=== PATIENT | female | born 1960 | race Caucasian/White ===

== ENCOUNTER 2018-03-31 10:22 | Observation (INO) | payer OTHER ==
[~2018-03-31] VITALS: Ht 167.6 cm; Wt 72.0 kg
[~2018-03-31 10:22] MED LIST: ASPI-611 PO; CEPH500C5 PO; CHOL200012 PO; MULT-85 PO; NITR0.4T48 SL; POTA99TA25 PO
[2018-03-31 10:50] LABS: BASOPHILS % (AUTO) 0.1 % (0-1); EOSINOPHILS # (AUTO) 0.2 X10'3 (0-0.9); EOSINOPHILS % (AUTO) 2.4 % (0-6); HEMOGLOBIN 15.7 g/dl (12.0-16.0); LYMPHOCYTES # (AUTO) 2.5 X10'3 (1.1-4.8); LYMPHOCYTES % (AUTO) 30.3 % (21-51); MEAN CORPUSCULAR HEMOGLOBIN 29.7 PG (27.0-31.0); MEAN CORPUSCULAR HGB CONC 34.1 % (33.0-36.5); MEAN CORPUSCULAR VOLUME 87.2 FL (78-98); MEAN PLATELET VOLUME 8.1 FL (7.4-10.4); MONOCYTES # (AUTO) 0.7 X10'3 (0-0.9); MONOCYTES % (AUTO) 8.4 % (2-12); NEUTROPHILS # (AUTO) 4.9 X10'3 (1.8-7.7); NEUTROPHILS % (AUTO) 58.8 % (42-75); PLATELET COUNT 277 X10'3 (140-440); RED BLOOD COUNT 5.28 X10'6 (4.20-5.60); RED CELL DISTRIBUTION WIDTH 14.1 % (11.5-14.5); WHITE BLOOD COUNT 8.3 X10'3 (4.5-11.0)
[2018-03-31] MEDS ORDERED: LORazepam 2 mg/ml vial IV ONE (10:50)
[2018-03-31] MEDS ORDERED: nitroGLYCERIN 0.4mg/hour patch TD ONE (10:50)
[2018-03-31] MEDS ORDERED: aspirin 81mg tab.chew PO ONE (10:50)
[2018-03-31 11:04] LABS: ALANINE AMINOTRANSFERASE 19 U/L (12-78); ALBUMIN 3.8 G/DL (3.4-5.0); ALBUMIN/GLOBULIN RATIO 1.1 (1.1-1.5); ALKALINE PHOSPHATASE 66 IU/L (46-116); ANION GAP 11 (8-16); ASPARTATE AMINO TRANSFERASE 20 U/L (10-37); BILIRUBIN,TOTAL 0.4 MG/DL (0.1-1.0); BLOOD UREA NITROGEN 8 MG/DL (7-18); BUN/CREATININE RATIO 10.4 (6.6-38.0); CALCIUM 9.3 MG/DL (8.5-10.1); CHLORIDE 103 MMOL/L (99-107); CREATININE 0.77 MG/DL (0.40-0.90); GLUCOSE 106 MG/DL (70-104); POTASSIUM 3.9 MMOL/L (3.5-5.1); SODIUM 140 MMOL/L (135-145); TOTAL CARBON DIOXIDE 26.4 MMOL/L (24-32); TOTAL PROTEIN 7.4 G/DL (6.4-8.2); eGFR 78 ML/MIN
[2018-03-31 11:09] LABS: PARTIAL THROMBOPLASTIN TIME 27 SECONDS (22-32); PROTHROMBIN TIME 10.7 SECONDS (9.0-12.0)
[2018-03-31] MEDS ORDERED: acetaminophen 325mg tablet PO ONE (11:10)
[2018-03-31] MEDS: morphine 4 MG/ML inj SYRINge IV PRN ×2 (11:35→12:39)
[2018-03-31] MEDS ORDERED: METO25TA6 PO (12:36)
[2018-03-31] MEDS ORDERED: mag hydrox/Alum hydrox/simeth 30ml oral suspension PO PRN (12:40)
[2018-03-31] MEDS ORDERED: nitroGLYCERIN 0.4mg SUBLingual tab SL PRN ×2 (12:40→16:30)
[2018-03-31] MEDS ORDERED: magnesium hydroxide 30ml (MOM) UD suspension PO PRN (12:40)
[2018-03-31] MEDS ORDERED: morphine 2 MG/ML inj. syringe IV PRN (12:40)
[2018-03-31] MEDS ORDERED: acetaminophen 325mg tablet PO PRN (12:40)
[2018-03-31] MEDS ORDERED: ASPI-1264 PO (12:58)
[2018-03-31] MEDS: morphine 2 MG/ML inj. syringe IV PRN ×2 (14:28→21:17)
[2018-03-31 14:49] LABS: CLARITY,URINE CLEAR (Clear); COLOR,URINE YELLOW (Yellow); GLUCOSE, URINE NEGATIVE (Neg); KETONES,URINE NEGATIVE (Neg); LEUKOCYTE ESTERASE ,URINE NEGATIVE (Neg); NITRITES, URINE NEGATIVE (Neg); OCCULT BLOOD,URINE MODERATE (Neg); PROTEIN,URINE NEGATIVE (Neg); UROBILINOGEN,URINE 0.2 E.U/dL (0.2-1.0)
[2018-03-31 14:50] LABS: UA COLLECTION TYPE CLN CATCH MIDSTREAM
[2018-03-31 15:00] VITALS: BP 102/52
[2018-03-31 15:06] LABS: MUCUS STRANDS FEW /LPF (Neg); SQUAMOUS EPITHELIAL CELL,UR FEW /LPF (FEW)
[2018-03-31 15:07] LABS: BACTERIA,URINE FEW /HPF (Neg); FINE GRANULAR CAST 0-3 /LPF (NEGATIVE); WBC,URINE 0-4 /HPF (0-4)
[2018-03-31] MEDS ORDERED: morphine 2 MG/ML inj. syringe IV ONE (16:20)
[2018-03-31] MEDS ORDERED: enoxaparin 40mg/0.4ml syringe SUBCUT ONE ×2 (16:30)
[2018-03-31] MEDS ORDERED: enoxaparin 30mg/0.3ml syringe SUBCUT ONE (16:35)
[2018-03-31] MEDS: ondansetron/PF 4mg/2ml inj IV PRN (17:43)
[2018-03-31 19:00] VITALS: BP 114/54
[2018-03-31 23:00] VITALS: BP 110/60
[2018-04-01] VITALS (12 sets, daily range): BP systolic 110–140; BP diastolic 45–75
[2018-04-01] MEDS ORDERED: nitroGLYCERIN 0.4mg SUBLingual tab SL PRN (07:45)
[2018-04-01] MEDS ORDERED: CAFFEINE CITRATE 60 MG/3 ML injection vial IV PRN (07:45)
[2018-04-01] MEDS ORDERED: metoprolol tartrate 1mg/ml inj IV PRN (07:45)
[2018-04-01] MEDS ORDERED: regadenoson 0.4mg/5ml syringe IV ONE ×2 (07:45→11:12)
[2018-04-01] MEDS ORDERED: aspirin 325mg tablet PO SCH ×2 (08:00→08:30)
[2018-04-01] MEDS ORDERED: metoprolol tartrate 25mg tablet PO SCH (08:00)
[2018-04-01] MEDS ORDERED: multivitamins, therapeutics tablet PO SCH (08:00)
[2018-04-01] MEDS ORDERED: aspirin 81mg tab.chew PO SCH (08:30)
[2018-04-01 10:43] LABS: CHOL/HDL RATIO 5.3 (0.00-4.99); CHOLESTEROL 149 MG/DL (0-200); HDL CHOLESTEROL 28 MG/DL (35-60); LDL CHOLESTEROL 100 MG/DL (50-100); TRIGLYCERIDES 127 MG/DL (20-135)
[2018-04-01] MEDS ORDERED: CAFFEINE CITRATE 60 MG/3 ML injection vial IV ONE (11:12)
[2018-04-01] MEDS: ondansetron/PF 4mg/2ml inj IV PRN (13:10)
[2018-04-01] MEDS ORDERED: HYDROcodone/acetaminophen 5mg/325mg tablet PO PRN (15:05)
[2018-04-01] MEDS ORDERED: metoclopramide 5 mg/ml inj IV PRN (15:05)
== END 2018-04-01 19:37 | disposition home or self-care (01) ==
LOC: ER 10:22 → ED HOLD 12:36 → EDBEDREQ 14:20 → PCU 3S 15:11
PROVIDERS: ADMIT Internal Medicine; ATTEND Internal Medicine
DX: R07.89 Other chest pain (principal); R00.1 Bradycardia, unspecified; I10 Essential (primary) hypertension; F17.210 Nicotine dependence, cigarettes, uncomplicated; N20.0 Calculus of kidney; M51.9 Unspecified thoracic, thoracolumbar and lumbosacral intervertebral disc disorder; Z95.0 Presence of cardiac pacemaker; Z79.82 Long term (current) use of aspirin
CPT/HCPCS: 36415; 71045; 78452; 80053; 80061; 81001; 84484; 85025; 85610; 85730; 87070; 93005; 93017; 93306; 96372; 96374; 96375; 96376; 99285; A9500; C1751; G0378; J1650; J2060; J2270; J2405; J2765; J7030